=== PATIENT | male | born 1965 | race Asian ===

== ENCOUNTER 2024-03-23 02:32 | Emergency (ER) | payer MEDICAID, OTHER ==
[~2024-03-23] VITALS: Ht 167.6 cm; Wt 70.0 kg
[2024-03-23] MEDS ORDERED: ACETAMINOPHEN 325MG TABLET PO ONE (02:45)
[2024-03-23 02:49] VITALS: BP 158/78; PULSE 64; RESP 18; TEMP 97.8; O2SAT 99
[2024-03-23] MEDS ORDERED: IBUP-2029 MT (04:37)
[2024-03-23] MEDS ORDERED: ACETAMINOPHEN 325MG TABLET PO NR (05:00)
== END 2024-03-23 05:07 | disposition home or self-care (01) ==
LOC: ER 03:18
DX: S13.4XXA Sprain of ligaments of cervical spine, initial encounter (principal); Z00.00 Encounter for general adult medical examination without abnormal findings; V49.9XXA Car occupant (driver) (passenger) injured in unspecified traffic accident, initial encounter; Y93.89 Activity, other specified; Y92.89 Other specified places as the place of occurrence of the external cause; Y99.8 Other external cause status
CPT/HCPCS: 99284